=== PATIENT | female | born 1995 | race African-American/Black ===

== ENCOUNTER 2022-05-09 14:49 | Emergency (ER) | payer MEDICAID, OTHER ==
[~2022-05-09] VITALS: Ht 165.1 cm; Wt 50.0 kg
[2022-05-09] MEDS ORDERED: IBUPROFEN 600 MG TAB PO ONE ×2 (16:05→16:15)
[2022-05-09] MEDS ORDERED: ACETAMINOPHEN 500 MG TAB PO ONE ×2 (16:06→16:15)
[2022-05-09 17:27] VITALS: BP 131/93
[2022-05-09] MEDS ORDERED: AMOX-277 PO (18:12)
[2022-05-09] MEDS ORDERED: HYDR-4902 PO (18:12)
[2022-05-09] MEDS ORDERED: IBUP600T27 PO (18:12)
== END 2022-05-09 19:20 | disposition home or self-care (01) ==
LOC: ER 14:49
DX: K04.7 Periapical abscess without sinus (principal)